=== PATIENT | female | born 2005 ===

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

== ENCOUNTER 2025-01-25 05:00 | Outpatient (RCR) | payer MEDICAID, SELFPAY | END 2025-02-24 23:59 | disposition home or self-care (01) | LOC: MPT 05:00 | PROVIDERS: Visit Provider Orthopaedic Surgery | DX: Z47.89 Encounter for other orthopedic aftercare (principal) | CPT/HCPCS: 97110 ==

== ENCOUNTER 2025-02-25 05:00 | Outpatient (RCR) | payer MEDICAID, SELFPAY | END 2025-03-26 23:59 | disposition home or self-care (01) | LOC: MPT 05:00 | PROVIDERS: Visit Provider Orthopaedic Surgery | DX: Z47.89 Encounter for other orthopedic aftercare (principal) | CPT/HCPCS: 97110 ==